=== PATIENT | male | born 1940 | race Caucasian/White ===

== ENCOUNTER 2020-09-30 09:53 | Emergency (ER) | payer MEDICARE ==
[~2020-09-30] VITALS: Ht 162.6 cm; Wt 62.2 kg
[2020-09-30 10:15] VITALS: BP 130/85
[2020-09-30] MEDS ORDERED: SULF1TAB49 PO (11:55)
[2020-09-30] MEDS ORDERED: CEPH-585 PO (11:55)
[2020-09-30] MEDS ORDERED: mupirocin 2% ointment 22GM TP STA (12:16)
[2020-09-30] MEDS ORDERED: mupirocin 2% nasal ointment 1gm UD NS STA (12:18)
== END 2020-09-30 12:21 | disposition home or self-care (01) ==
LOC: ER 09:54
DX: S91.104A Unspecified open wound of right lesser toe(s) without damage to nail, initial encounter (principal); M79.674 Pain in right toe(s); Z79.2 Long term (current) use of antibiotics; X58.XXXA Exposure to other specified factors, initial encounter; Y93.89 Activity, other specified; Y92.89 Other specified places as the place of occurrence of the external cause; Y99.8 Other external cause status
CPT/HCPCS: 99283